=== PATIENT | female | born 1985 | race Caucasian/White ===

== ENCOUNTER 2022-03-25 13:53 | Emergency (ER) | payer OTHER ==
[2022-03-25] MEDS ORDERED: RABIES VACCINE (PCEC) 2.5 UNIT KIT IM ONE (15:14)
[2022-03-25] MEDS ORDERED: RABIES IMM GLOB 300 UNIT/2 ML VIAL IM ONE (15:14)
[2022-03-25] MEDS ORDERED: ACET/COD 300 MG/30 MG STARTER PACK 6 TAB BTL PO STA (15:15)
--- NOTE | 2022-03-25 15:29 | XR ---
Right index finger. HISTORY: Dog bite. COMPARISON: TECHNIQUE: 3 views the right index were obtained. There is no fracture, dislocation, intraosseous or intra-articular abnormality. Soft tissues are norm al without soft tissue gas or radiopaque foreign body. IMPRESSION: No significant abnormality seen.
--- NOTE | 2022-03-25 15:33 | ED ---
Animal Bite HPI - General Chief Complaint: Animal Bite Stated Complaint: Dog bite, [facility] Time Seen by Provider: 03/25/22 14:47 Source: patient, RN notes reviewed Mode of arrival: ambulatory Limitations: no limitations - History of Present Illness Initial Comments: 36-year-old female presents emergency Department chief complaint of dog bite. Patient states his happened at work. Patient was seen at outside urgent care, primary care physician who placed the patient on Augmentin advised him it from for rabies vaccine. Patient had Steri-Strips applied to the finger laceration and wound was cleaned at that time. Patient does complain of mild pain at this time - Related Data Allergies Allergy/AdvReac Type Severity Reaction Status Date / Time tetanus and diphtheria Allergy Unknown Verified 03/25/22 14:18 toxoids Review of Systems ROS Statement: Those systems with pertinent positive or pertinent negative responses have been documented in the HPI. ROS Other: All systems not noted in ROS Statement are negative. Past Medical History Past Medical History: GERD/Reflux History of Any Multi-Drug Resistant Organisms: None Reported Past Surgical History: No Surgical Hx Reported Past Psychological History: Depression Smoking Status: Vaper Past Alcohol Use History: None Reported Past Drug Use History: None Reported General Exam Limitations: no limitations Course Vital Signs 03/25/22 14:15 Temperature 98.2 F Pulse Rate 88 Respiratory 16 Rate Blood Pressure 156/92 O2 Sat by Pulse 100 Oximetry Medical Decision Making - Medical Decision Making X-rays negative for acute abnormality. Patient was given IgG and rabies vaccine patient had prescription for Augmentin. Patient given close follow-up return parameters were discussed. There is concerns for infection as dog bite is near joint. Disposition Clinical Impression: Dog bite Disposition: HOME SELF-CARE Instructions (If sedation given, give patient instructions): Animal Bite (ED) Additional Instructions: Please return to the Emergency Department if symptoms worsen or any other concerns. Take antibiotics as directed. Is patient prescribed a controlled substance at d/c from ED?: No Referrals: Guzman Ledesma MD [Primary Care Provider] - 1-2 days Mady Chairez DO [Doctor of Osteopathic Medicine] - 1-2 days Time of Disposition: 15:33
[2022-03-25 17:30] VITALS: BP 148/58; PULSE 82; RESP 20; TEMP 97.8
== END 2022-03-25 17:30 | disposition home or self-care (01) ==
LOC: EC 13:53
DX: S61.459A Open bite of unspecified hand, initial encounter (principal); Z29.14 Encounter for prophylactic rabies immune globulin; K21.9 Gastro-esophageal reflux disease without esophagitis; F32.A Depression, unspecified; F17.290 Nicotine dependence, other tobacco product, uncomplicated; Z88.7 Allergy status to serum and vaccine; W54.0XXA Bitten by dog, initial encounter
CPT/HCPCS: 90377; 90471; 90675; 96372; 99283